=== PATIENT | female | born 1945 | race Caucasian/White ===

== ENCOUNTER 2017-09-20 12:50 | Inpatient (IN) | payer MEDICARE, OTHER ==
[~2017-09-20] VITALS: Ht 154.9 cm; Wt 48.1 kg
[~2017-09-20 12:50] MED LIST: AZITHROMYCIN 2250 MG PO; CLEOCIN HCL150 MG PO; CLIMARA 0.070.075 MG TD; EVOXAC30 MG PO; MEDROLDOSEPACK PO; METROGEL-VAGINA70 GM VG; SOMA250 MG PO; TIROSINT88 MCG PO
[2017-09-20 12:58] VITALS: BP 137/80
[2017-09-20] MEDS ORDERED: MOBIC15 MG PO (13:06)
[2017-09-20] MEDS ORDERED: SINGULAIR 10 MG10 M1 PO (13:07)
[2017-09-20] MEDS ORDERED: ZANTAC 150MG T150 MG PO (13:08)
[2017-09-20] MEDS ORDERED: PREDNISONE 10 M10 MG PO (13:11)
[2017-09-20 13:33] LABS: HEMATOCRIT 44.9 % (37.0-47.0); HEMOGLOBIN 14.7 gm/dL (12.0-15.0); MCH 28.9 pg (26.0-34.0); MCHC 32.8 g/dL (28.0-37.0); MCV 88.1 fL (80.0-100.0); NUCLEATED RBCS 0 /100WBC; PLATELET COUNT* 290 thou/uL (150-400); RBC 5.09 mil/uL (4.20-5.00); RDW-CV 17.7 % (10.5-14.5); WBC 15.5 thou/uL (4.0-11.0)
[2017-09-20 13:42] LABS: CALCIUM 8.6 mg/dL (8.5-10.1); CREATININE 1.2 mg/dL (0.6-1.3); POTASSIUM 4.5 mmol/L (3.5-5.1)
[2017-09-20 13:53] LABS: ALBUMIN 3.6 g/dL (3.4-5.0); TOTAL BILIRUBIN 0.8 mg/dL (<0.1-1.0); TOTAL PROTEIN 6.6 g/dL (6.4-8.2); TROPONIN-I LEVEL 0.25 ng/mL (<0.06)
[2017-09-20 13:54] LABS: ABSOLUTE BASOPHILS 0.2 thou/uL (0.0-0.2); ABSOLUTE EOSINOPHILS 0.2 thou/uL (0.0-0.7); ABSOLUTE LYMPHOCYTES 0.9 thou/uL (0.8-5.3); ABSOLUTE MONOCYTES 0.3 thou/uL (0.0-1.2); ATYPICAL LYMPHS 2 %; PLATELET ESTIMATE ADEQUATE
[2017-09-20 16:58] VITALS: BP 147/88
--- NOTE | 2017-09-20 17:29 | 2DMMODE ---
[place] [address] 2 D/M-MODE ECHOCARDIOGRAM Name: EDWIN BA Room: [address] IN [facility]#: [id number] Admission: 09/20/17 Attend Phys: Negrito Davila Discharge: Date of : 43 Date of Service: 09/20/17 1729 Report #: [id number] THIS REPORT FOR: //name// APPROVED REPORT Study performed: 09/20/2017 15:50:09 EXAM: Comprehensive 2D, Doppler, and color-flow Echocardiogram Patient Location: In-Patient Room #: ER Status: routine BSA: 1.45 HR: 73 bpm BP: 147/88 mmHg Rhythm: NSR Other Information Study Quality: Good Indications Dyspnea 2D Dimensions LVEF(%): 78.95 (>50%) IVSd: 8.22 (7-11mm) LVOT Diam: 18.36 (18-24mm) LVDd: 27.35 mm PWd: 8.04 (7-11mm) Ascending Ao: 30.91 (22-36mm) LVDs: 14.82 (25-40mm) Aortic Root: 27.15 mm Bruno's LVEF: 78.95 % Volumes Left Atrial Volume (Systole) LA ESV Index: 11.40 mL/m2 Aortic Valve AoV Peak Mike.: 1.09 m/s AO Peak Gr.: 4.71 mmHg LVOT Max P.65 mmHg AO Mean Gr.: 2.47 mmHg LVOT Mean P.65 mmHg LVOT Max V: 0.64 m/s AO V2 VTI: 20.47 cm LVOT Mean V: 0.36 m/s VAMSI (VTI): 1.60 cm2 LVOT V1 VTI: 12.35 cm Mitral Valve E/A Ratio: 0.71 [place] [address] 2 D/M-MODE ECHOCARDIOGRAM Name: EDWIN BA Room: [address] IN .R.#: [id number] Admission: 09/20/17 Attend Phys: Negrito Davila Discharge: Date of : 43 Date of Service: 09/20/17 1729 Report #: [id number] MV Decel. Time: 138.82 ms MV E Max Mike.: 0.57 m/s MV PHT: 40.26 ms MVA (PHT): 5.46 cm2 TDI E/Lateral E': 7.13 E/Medial E': 7.13 Medial E' Mike.: 0.08 m/s Lateral E' Mike.: 0.08 m/s Pulmonary Valve PV Peak Mike.: 0.84 m/s PV Peak Gr.: 2.80 mmHg Tricuspid Valve TR Peak Gr.: 83.98 mmHg RVSP: 88.00 mmHg Left Ventricle The left ventricle is normal size. There is normal LV segmental wall motion. Moderate concentric left ventricular hypertrophy. Left ventricular systolic function is normal. The left ventricular ejection fraction is within the normal range. LVEF is 60-65%. Grade I - abnormal relaxation pattern. Right Ventricle Right ventricle is dilated. The right ventricular systolic function is normal. Atria The left atrium size is normal. Right atrium is moderate to severely dilated. Aortic Valve Mild aortic valve sclerosis. Trace aortic regurgitation. Mild aortic stenosis. Mitral Valve The mitral valve is normal in structure. Trace mitral regurgitation. No evidence of mitral valve stenosis. Tricuspid Valve The tricuspid valve is normal in structure. There is severe pulmonary hypertension. The RVSP is ___88____ mmHg. Pulmonic Valve The pulmonary valve is normal in structure. Mild [place] [address] 2 D/M-MODE ECHOCARDIOGRAM Name: SHELLIHONORIOEDWIN C Room: [address] IN [facility]#: [id number] Admission: 09/20/17 Attend Phys: Negrito Davila Discharge: Date of : 43 Date of Service: 09/20/17 1729 Report #: [id number] Great Vessels The aortic root is normal in size. IVC is normal in size and collapses with >50% inspiration Pericardium There is no pericardial effusion. <Conclusion> LVEF is 60-65%. Moderate concentric left ventricular hypertrophy. There is normal LV segmental wall motion. Grade I - abnormal relaxation pattern. Right ventricle is dilated. The right ventricular systolic function is normal. Mild aortic stenosis. Trace aortic regurgitation. There is severe pulmonary hypertension. The RVSP is 88mmHg. <ELECTRONICALLY SIGNED> By: Torrey Reynoso MD, FACC 09/20/171728 28 28 Torrey Reynoso MD, FACC /INF
--- NOTE | 2017-09-20 17:30 | EKG ---
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1945 Requested By: Rosy Redmond Order Number: [id number] Dontae MD: Torrey Reynoso Measurements Intervals [place] Rate: 71 P: 57 IA: 137 QRS: -52 QRSD: 80 T: 8 QT: 383 QTc: 417 Interpretive Statements Sinus rhythm Left atrial enlargement Left anterior fascicular block Anterior infarct, age indeterminate No previous ECG available for comparison Electronically Signed On 09-20-2017 17:30:32 [employer] by Torrey Reynoso [email or web address] <ELECTRONICALLY SIGNED> By: Torrey Reynoso MD, [facility] 09/20/17 6160 1321 1321 Torrey Reynoso MD, [facility] /EPI
--- NOTE | 2017-09-20 17:37 | NUR ---
Pt to room from ER , appears alert o x 4, denies chest pain, sob, p[ain or discomfort, on o2 at 2l per nc
[2017-09-20 17:38] VITALS: BP 145/90
--- NOTE | 2017-09-20 18:58 | NUR ---
PT RESTING IN BED, WITHOUT C/O. SL
[2017-09-20 20:15] VITALS: BP 133/75
[2017-09-21 00:32] VITALS: BP 130/83
[2017-09-21 04:07] VITALS: BP 121/79
--- NOTE | 2017-09-21 04:57 | NUR ---
ASSUMED CARE AROUND 1930. PT A/OX4, PLEASANT, RESTED SOME TONIGHT. TELE MONITOR TRACING SR. ON 2L NC. SATS DOWN TO 86% ON ROOM AIR THIS SHIFT. IV SALINE LOCKED. UP AD GRACE, STEADY ON FEET. REPORTING LEG CRAMPS, RELIEVED WITH AMBULATION. PT REPORTED INTERMITTENT CHEST PRESSURE, DECLINED ANY MEDS. VSS, AFEBRILE. SEE CHARTING. NO CONCERS VOICED. CALL LIGHT IN REACH, WILL CONTINUE WITH PLAN OF CARE.
[2017-09-21 06:20] LABS: ABSOLUTE BASOPHILS 0.2 thou/uL (0.0-0.2); ABSOLUTE LYMPHOCYTES 2.5 thou/uL (0.8-5.3); ABSOLUTE MONOCYTES 1.6 thou/uL (0.0-1.2); ABSOLUTE NEUTROPHILS 10.3 thou/uL (1.6-8.1); BASOPHILS 1.2 %; EOSINOPHILS 0.2 %; HEMOGLOBIN 14.6 gm/dL (12.0-15.0); LYMPHOCYTES 17.2 %; MCH 28.7 pg (26.0-34.0); MCHC 32.5 g/dL (28.0-37.0); MCV 88.3 fL (80.0-100.0); MONOCYTES 11.2 %; MPV 8.6 fl. (7.2-11.1); NUCLEATED RBCS 0 /100WBC; PLATELET COUNT* 274 thou/uL (150-400); POLYS 70.2 %; RBC 5.09 mil/uL (4.20-5.00); RDW-CV 17.6 % (10.5-14.5); WBC 14.6 thou/uL (4.0-11.0)
[2017-09-21 06:44] LABS: ALBUMIN 3.5 g/dL (3.4-5.0); CALCIUM 8.9 mg/dL (8.5-10.1); CREATININE 1.2 mg/dL (0.6-1.3); POTASSIUM 4.4 mmol/L (3.5-5.1); TOTAL BILIRUBIN 1.1 mg/dL (<0.1-1.0); TOTAL PROTEIN 5.9 g/dL (6.4-8.2)
[2017-09-21 08:38] VITALS: BP 136/84
[2017-09-21 11:42] VITALS: BP 129/77
[2017-09-21 15:38] VITALS: BP 118/73
--- NOTE | 2017-09-21 19:53 | NUR ---
PT RESTING IN BED, O X 4, BRP, SEEN BY CARDIOLOGY, PULMONARY CONSULTED , R/O PULMONARY HTN. O2 AT 2L PER NC
[2017-09-21 20:00] VITALS: BP 120/76
--- NOTE | 2017-09-21 22:03 | NUR ---
ASSUMED PATIENT CARE AT 1900. BEDSIDE REPORT GIVEN. PATIENT ALERT AND ORIENTED. AT BEDSIDE. OXYGEN AT 2L. PATIENT REQUESTS SOMETHING TO SLEEP AND RESTART ZANTAC. AMBIEN 5MG PRN GIVEN. PATIENT EDUCATED ON S/E. MARIA TERESA ALARM IN PLACE DUE TO NEW MEDICATION AND INCREASED POTENTIAL FOR FALLS. INSTRUCTED ZANTAC NOT AVAILABLE BUT ORDER FOR PEPCID REC'D. PATIENT IN AGREEANCE WITH POC. FALL PRECAUTIONS IN PLACE. OK TO PROCEED.
[2017-09-22] VITALS (7 sets, daily range): BP systolic 114–134; BP diastolic 59–92
--- NOTE | 2017-09-22 04:49 | NUR ---
PATIENT STABLE THROUGH SHIFT. DENIES PAIN OR OTHER NEEDS. PRN SLEEP AID GIVEN. PATIENT UP TO BATHROOM ONCE DURING NIGHT. HOURLY ROUNDING IN PLACE. WILL CONTINUE TO MONITOR.
--- NOTE | 2017-09-22 20:00 | NUR ---
RECEIVED REPORT AND ASSUMED CARE OF PT, ASSESSMENT COMPLETED. PT ANXIOUS ABOUT BOWEL AND STRESS TEST TOMORROW, WILL GIVE IMMODIUM BUT PT REQUEST 1 CAP. GAIT STEADY ABOUT ROOM. TELEMETRY ON SHOWING SR. WILL CONT TO MONITOR AND ASSIST NEEDED.
--- NOTE | 2017-09-22 20:19 | NUR ---
I ASSUMED CARE OF THE PATIENT AT 0700. HOURLY ROUNDING WAS DONE AND PATIENT NEEDS WERE MET. PAIN WAS DENIED. BED IS IN THE LOW LOCKED POSITION AND CALL LIGHT IS IN REACH. PATIENT IS UP AD GRACE TO THE BATHROOM. SHE HAD A LARGE LOOSE STOOL TODAY AND NEW ORDERS WERE OBTAINED. SHE IS NPO AT MIDNIGHT FOR A STRESS TEST AND VQ SCAN ON SATURDAY. CT RESULTS WERE CALLED TO DR MINOR. WILL CONTINUE TO MONITOR.
[2017-09-23 04:06] VITALS: BP 106/70
--- NOTE | 2017-09-23 06:53 | NUR ---
SLEPT WELL TONIGHT. UP TO BR AND RETURNED BACK TO BED. NO FURTHER STOOLS TONIGHT. NPO [place]CE [place] FOR STRESS TEST TODAY. TELEMETRY CONT TO SHOW SR. NO COMPLAINTS VOICED. ADVANCING TOWARDS GOALS. HOURLY ROUNDING OBSERVED.
[2017-09-23 07:30] VITALS: BP 114/78
[2017-09-23 11:46] VITALS: BP 125/75
--- NOTE | 2017-09-23 12:00 | NUR ---
CM ASSESSMENT: Pt is A&O. Resides at home with her . Normally pretty independent with ADLs, continues to cook, clean and drive. Pt uses an inhaler at home, but no home o2. Pt to be tested for home o2 durin this hospital stay. Pt stated that she has begun using her walker more at home. No hx of HH or SNF. Supportive family that is involved in POC. Goal is to return home once medically stable for dc. Following.
--- NOTE | 2017-09-23 15:54 | NUR ---
ASSESSMENT COMPLETED REFER TO COMPUTER CHARTING. HEAD WORKER TRACKING SR. PATIENT RESTING IN BED REPORTING NO PAIN, NAUSEA OR SHORTNESS OF BREATH. BED IN LOW AND LOCKED POSITION. CALL LIGHT WITHIN REACH. IV SALINE LOCKED. PATIENT TO HAVE O2 SAT MONITOR THIS HS. DUE TO PATIENT HAVING VQ SCAN TODAY STRESS TEST WILL BE SATURDAY. WILL CONTINUE TO MONITOR THIS SHIFT.
[2017-09-23 16:00] VITALS: BP 110/78
[2017-09-23 16:09] LABS: HEMATOCRIT 50.6 % (37.0-47.0); HEMOGLOBIN 16.4 gm/dL (12.0-15.0); MCH 28.6 pg (26.0-34.0); MCHC 32.3 g/dL (28.0-37.0); MCV 88.4 fL (80.0-100.0); MPV 8.9 fl. (7.2-11.1); RBC 5.72 mil/uL (4.20-5.00); RDW-CV 18.1 % (10.5-14.5); WBC 17.3 thou/uL (4.0-11.0)
[2017-09-23 16:27] LABS: ALBUMIN 3.7 g/dL (3.4-5.0); CALCIUM 8.3 mg/dL (8.5-10.1); CREATININE 1.3 mg/dL (0.6-1.3); POTASSIUM 4.4 mmol/L (3.5-5.1); TOTAL PROTEIN 6.7 g/dL (6.4-8.2)
--- NOTE | 2017-09-24 03:17 | NUR ---
PT HAS DENIED PAIN, SOA, AND ANY OTHER DISCOMFORT. SHE IS UP AD GRACE IN HER ROOM, STEADY GAIT WITHOUT ASSISTANCE. OVERNIGHT O2 SAT MONITORING IN PLACE. PT IS NPO AFTER MIDNIGHT FOR STRESS TEST LATER TODAY. PRN AMBIEN GIVEN AT HS PER PT REQUEST. CALL LIGHT WITHIN REACH.
[2017-09-24 05:03] VITALS: BP 118/67
--- NOTE | 2017-09-24 08:08 | CON ---
[address] [address] CONSULTATION Name: EDWIN BA Room: [address] IN M.R.#: [id number] Admission: 09/20/17 Attend Phys: Negrito Boudreaux, Discharge: Date of : 43 Report #: [id number] THIS REPORT FOR: //name// CC: Negrito Mackey REASON FOR CONSULTATION: Pulmonary hypertension, shortness of breath. HISTORY OF PRESENT ILLNESS: The patient is a 71-year-old female patient who is not a smoker, but she told me she has been told she has COPD, emphysema, Sjogren's syndrome. She follows with Dr. Pang in the past and she is on inhalers at home. She had some increasing shortness of breath for the last few days. She received some steroids from Dr. Pang's office with some improvement in her symptoms; however, because the symptoms did not resolve, she presented to the ER. She also developed lower extremity edema for the last several days and had difficulty lying flat and she provided positive history of orthopnea with some feeling of chest discomfort. Of note, she is not on any oxygen at home. She is followed by Cardiology as an outpatient too. She had no fever, no chills, no sick contact, no symptoms to suggest upper respiratory tract infection. She had no hemoptysis and denied any symptoms. ALLERGIES: CONTRAST DYE. PAST MEDICAL HISTORY: She has history of congestive heart failure, Sjogren's syndrome and was told she has COPD/asthma and she had a leaky heart valve according to her. PAST SURGICAL HISTORY: Bilateral leg surgery, cholecystectomy, . FAMILY HISTORY: Reviewed with the patient, noncontributory. SOCIAL HISTORY: Does not drink alcohol. Does not abuse drugs, never smoked before. HOME MEDICATIONS: She is on levothyroxine, meloxicam, Singulair, ranitidine and recently she was on prednisone taper. REVIEW OF SYSTEMS: She denied fever, chills, blurring of vision, dizziness, but reported shortness of breath, dyspnea on exertion, orthopnea. She denied cough, diarrhea, change in bowel habits. She has some chest discomfort. She denied any easy bruisability or bleeding from any orifice. She denied depression or anxiety. The rest of the review of system was negative. PHYSICAL EXAMINATION: VITAL SIGNS: She is on 2 liters oxygen with saturation more than 90%, blood pressure 134/92, pulse rate 72, temperature 36.4, breathing 18 times a minute. GENERAL: Thin lady, awake, alert, oriented, speaks in full sentences, [place] [address] CONSULTATION Name: EDWIN BA Room: [address] IN M.R.#: [id number] Admission: 09/20/17 Attend Phys: Negrito Boudreaux, Discharge: Date of : 43 Report #: [id number]. HEENT: Head: Normocephalic, atraumatic. Eyes: Pupils equal, reactive to light. Extraocular muscle movements intact, not pale, no jaundice. External ear looks healthy and normal. Oral cavity: Mallampati of 2, moist mucous membrane. Nasal cavity patent. NECK: Supple. No palpable lymph node. No palpable thyroid. Trachea is central. CHEST: Diminished air movement bilaterally with prolonged expiratory phase. No definite wheezes. HEART: S1, S2, , faint systolic murmur. ABDOMEN: Benign, soft, lax, nontender. EXTREMITIES: Lower extremity, trace edema, equal bilaterally. No calf tenderness. NEUROLOGIC: Moving 4 extremities spontaneously. No focal weakness. Cranial nerves grossly normal. PSYCHIATRIC: Mood and affect appropriate. Good insight and judgment. SKIN: Normal for age and race. No rash. LYMPHATICS: No palpable lymph nodes. Her venous Doppler ultrasound did not show evidence of DVT. Her chest x-ray on 20 of September did not show acute process. She had an echocardiogram during this hospitalization that demonstrated ejection fraction of 60% with grade 1 diastolic dysfunction and pulmonary hypertension of 88 mmHg. Her white blood count is 15.5, hemoglobin 14.7 and platelets of 290. Her D-dimer was noted to be elevated. IMPRESSION: 1. Fluid overload. 2. Picture of congestive heart failure, diastolic dysfunction. 3. Severe pulmonary hypertension. 4. History of chronic obstructive pulmonary disease/asthma, nonsmoker. 5. History of Sjogren's syndrome. The patient with pulmonary hypertension. She has multiple factors to have the pulmonary hypertension, could be related to Sjogren's syndrome with some element of interstitial lung disease. Also, pulmonary embolus is a concern. I agree with V/Q scan. She is being followed by Cardiology. The diastolic dysfunction also could be a contributing factor for pulmonary hypertension. She may benefit from sleep study as an outpatient. She already sees Dr. Pang. I have no access to the record, but outpatient PFT would be helpful. I agree with oxygen supplement at this point. Close discharge needs to be evaluated for home oxygen. If she comes off oxygen during the daytime, we can do overnight oximetry. I am going to do high resolution CT scan for further evaluation for any interstitial lung disease. We will do an LION profile. As mentioned above, she will benefit from oxygen at home if she qualifies on outpatient sleep study. [facility] [address] [place] [address] CONSULTATION Name: EDWIN BA Room: [address] IN .R.#: [id number] Admission: 09/20/17 Attend Phys: Negrito Boudreaux, Discharge: Date of : 43 Report #: [id number] Thank you for the consult. <ELECTRONICALLY SIGNED> By: Hernan Pang MD 09/24/17 0808 0950 [id number] Silverman MD /nt
[2017-09-24] MEDS ORDERED: MAXZIDE-25 MG1 EACH PO (11:49)
[2017-09-24 12:40] VITALS: BP 135/90
--- NOTE | 2017-09-24 15:19 | CON ---
[address] [address] CONSULTATION Name: EDWIN BA Room: [address] IN .R.#: [id number] Admission: 09/20/17 Attend Phys: Negrito Boudreaux, Discharge: Date of : 43 Report #: [id number] THIS REPORT FOR: //name// CC: Negrito Espinoza Deshaunwicho DATE OF SERVICE: 09/21/2017 CHIEF COMPLAINT: Shortness of breath, chest pain. HISTORY OF PRESENT ILLNESS: The patient is a 71-year-old female who presented with significant shortness of breath with any activity. She denies palpitations or heart racing, but she does also complain of a centrally located chest pressure, lasts 3-5 minutes long. Her presenting ECG did not show any acute ST segment changes. Cardiac troponin level is normal. She had an echocardiogram which demonstrated severe greater than 75 mmHg pulmonary artery pressures along with dilated right-sided chambers. She has a known history of obstructive lung disease followed by Dr. Pang. This morning, she is chest pain free. She denies syncope or presyncope. Denies fevers or chills, denies leg swelling, orthopnea or PND. PAST MEDICAL HISTORY: COPD, emphysema, history of mild diastolic heart failure. She was followed by Dr. Maldonado in our office, hypothyroidism, GERD. PAST SURGICAL HISTORY: . HOME MEDICATIONS: Ranitidine, probiotic, omega 3, other supplements, Synthroid 88 mcg daily, meloxicam, Singulair. FAMILY HISTORY: Positive for heart disease in both parents. SOCIAL HISTORY: She is a nonsmoker, never smoker. REVIEW OF SYSTEMS: CARDIOVASCULAR: Positive chest pain, positive dyspnea, positive orthopnea. No palpitations. NEUROLOGIC: No syncope or presyncope. CENTRAL NERVOUS SYSTEM: No seizures or paralysis. ALLERGIES: Positive seasonal allergies. Positive dye allergies. PSYCHIATRIC: No depression. Positive anxiety. MUSCULOSKELETAL: [place] [address] CONSULTATION Name: EDWIN BA Yamini Room: [address]#: [id number] Admission: 09/20/17 Attend Phys: Negrito Boudreaux, Discharge: Date of : 43 Report #: [id number] SKIN: Positive rashes. EYES: Does use glasses. EARS, NOSE, THROAT AND MOUTH: Positive decreased hearing. GASTROINTESTINAL: No nausea or vomiting. ENDOCRINE: Positive thyroid disease. GENERAL: Positive fevers. PHYSICAL EXAMINATION: VITAL SIGNS: Blood pressure 136/84, heart rate 16, pulse 66, temperature is 36.2. GENERAL: This is a thin, elderly female. She is in no apparent distress. HEENT: Eyes are intact. No facial asymmetry. NECK: Supple, no jugular venous distention. HEART: Regular, I cannot hear a murmur. LUNGS: Clear to auscultation. She has positive S4. ABDOMEN: Nontender. EXTREMITIES: No peripheral edema. LABORATORY DATA: Electrocardiogram shows pulmonary disease pattern, normal ST segments. Troponin I is 0.32, 0.31, 0.33. Sodium is 142, potassium 4.4, chloride is 105, CO2 is 27, BUN is 25, creatinine is 1.2. Chest x-ray, no acute process. Venous Dopplers negative. IMPRESSION: 1. Dyspnea. I suspect this is a predominance related to her severe pulmonary hypertension noted on transthoracic echocardiogram testing. My understanding is our catering sales manager is going to be consulted. 2. Abnormal troponin. This is probably secondary to right heart strain and right heart failure as her right ventricle is dilated, although she does have some angina risk factors, so she should have a Lexiscan stress test. 3. Emphysema. As noted above, her catering sales manager has been consulted and she probably needs oxygen at bare minimum and also evaluation for possible pulmonary hypertension targeted therapy as directed by her catering sales manager. <ELECTRONICALLY SIGNED> By: Torrey Reynoso MD, FACC 09/24/17 1519 1059 [id number] Reynoso MD, FACC /nt
[2017-09-24 16:00] VITALS: BP 129/73
--- NOTE | 2017-09-24 16:09 | NUR ---
Waiting for stress test to be read, Pt ready to dc to home today. Pt will need ex ox completed. Updated nurse. Left info to fax to [facility]ana on chart (H&P, o2 order, facesheet), nurse will need to print off the RT sat from the ex ox and include with fax. Info to be faxed to [phone]
--- NOTE | 2017-09-24 16:24 | CARDNUC ---
[place] [address] CARDIAC NUCLEAR IMAGING REPORT Name: EDWIN BA Room: [address] IN [facility]#: [id number] Admission: 09/20/17 Attend Phys: Negrito Davila Discharge: Date of : 43 Date of Service: 09/24/17 1623 Report #: [id number] THIS REPORT FOR: //name// APPROVED REPORT Exam: Nuclear Stress Test Indication: Chest pain, Dyspnea Patient Location: In-Patient Room #: [facility] Stress Tech: Sera Rosas Stress Nurse: Matilda Curiel RN NM Tech:CIARA Quispe Ht: 5 ft 1 in Wt: 108 lbs BSA: 1.45 m2 BMI: 20.40 Medical History Medical History: CHF, Valvular heart disease Medications: No cardiac medications Allergies: contrast dye Cardiac Risk Factors: Age Exercise History: Sedentary Stress Test Details Stress Test: Pharmacologic stress testing performed using 0.4 mg of regadenoson per 5 mL given IV over 10 seconds. Reason for pharmacologic stress test: physical limitation. HR Resting HR: 61 bpm Max Heart Rate (APMHR): 148 bpm Max HR Achieved: 103 bpm Target HR (85% APMHR): 125 bpm % of APMHR: 69 Recovery HR: 97 bpm HR response to stress: Normal HR response to stress BP Resting BP: 135/83 mmHg Max BP: 125/71 mmHg BP response to stress: Normal blood pressure response to stress. ECG Resting ECG: Sinus Rhythm Stress ECG: Sinus Rhythm ST Change: [place] [address] CARDIAC NUCLEAR IMAGING REPORT Name: EDWIN BA Room: [address]#: [id number] Admission: 09/20/17 Attend Phys: Negrito Davila Discharge: Date of : 43 Date of Service: 09/24/17 1623 Report #: [id number] Arrhythmia: None Recovery ECG: Sinus Rhythm Clinical Reason for Termination: Completed protocol Stress Symptoms: None Exercise duration: 0 min sec Exercise capacity: 1.0 METs Stress ECG Conclusion negative ecg NM EXAM: Myocardial Perfusion REST/STRESS Imaging Protocol: Rest Tc-99m/Stress Tc-99m 1 day Resting Data Rest SPECT myocardial perfusion imaging was performed in supine position 30 minutes following the intravenous injection of 9.5 mCi of Tc-99m Sestamibi. Time of rest injection: 734 Time of rest imagin The images were gated to evaluate regional wall motion and calculate left ventricular ejection fraction. Administration Route: IV Pharmacologic Stress Pharmacologic stress test was performed by injecting Regadenoson 0.4 mg IV push followed by the intravenous injection of 26.1 mCi of Tc-99m Sestamibi. Time of stress injection: 0930 Time of stress imagin Administration Route: IV Gated Stress SPECT was performed 40 minutes after stress injection. The images were gated to evaluate regional wall motion and calculate left ventricular ejection fraction. Study Quality Study: Good Artifact: Mild Breast artifact Lung Uptake: Normal Study Data At rest, the left ventricular ejection fraction was 84%.. Post stress, the left ventricular ejection was 85%.. SSS: [address] [place] [address] CARDIAC NUCLEAR IMAGING REPORT Name: EDWIN BA Room: [address] IN [facility]#: [id number] Admission: 09/20/17 Attend Phys: Negrito Davila Discharge: Date of : 43 Date of Service: 09/24/17 1623 Report #: [id number] SRS: 2 SDS: 1 Perfusion Review of rest data reveals normal perfusion, without perfusion defects.Imaging obtained following vasodilator stress demonstrate a similar, uniform uptake of tracer without defects. Prone imaging was normal. LVEDV is normal.No segental wall motion abnormality seen. Images were reviewed using [email or web address].in. Wall Motion normal Nuclear Conclusion ECG Findings: negative for ischemia Clinical Findings: negative for ischemia Nuclear Findings: negative for ischemia Exercise Capacity: not assessed Left Ventricular Function: normal Risk Study: low Negative perfusion nuclear stress test. <Conclusion> negative ecg <ELECTRONICALLY SIGNED> By: Torrey Reynoso MD, FACC 09/24/17 1453 162 [id number] Torrey Reynoso MD, [facility] /INF
--- NOTE | 2017-09-24 19:00 | NUR ---
ORDER RECEIVED TO DISCHARGE PATINET HOME TO SELF CARE. MED REC, MEDICATION EDUCATION, STROKE EDUCATION AND NEED FOR FOLLOW UP APPOINTMENT WITH PULM, PRIMARY COVERED, AND CARDIOLOGY WITHIN 1 WEEK COVERED AND STATED UNDERSTOOD BY P[ATIENT. ORDER FOR FOLLOW UP APPOINTMENT FOR POST HF CARDILOGY FOLLOW UP FAXED TO CARDIOLOGY OFFICE. WILL FOLLOW UP WITH OFFICE IN AM. PATINET TAKEN VIA WHEELCHAIR TO AWAITING CAR WITH SPOUSE PRESENT. PATIENT IN NO APPARENT DISTRESS AT TIME OF DISCHARGE. DC TIME OF 17:45. HOURLY ROUNDING COMPLETD FOR PATIENT SAFETY.
== END 2017-09-24 18:00 | disposition home or self-care (01) | DRG 292 ==
LOC: M.ERS 12:50 → M.TBA-ER 15:32 → M.2W 15:32
PROVIDERS: Internal Medicine; Physician Assistant; ADMIT Family Medicine
PROC: B24BZZ4 Ultrasonography of Heart with Aorta, Transesophageal (ICD-10-PCS; principal; 2017-09-20)
DX: I50.31 Acute diastolic (congestive) heart failure (principal); R65.10 Systemic inflammatory response syndrome (SIRS) of non-infectious origin without acute organ dysfunction; M35.00 Sjogren syndrome, unspecified; J44.9 Chronic obstructive pulmonary disease, unspecified; H91.90 Unspecified hearing loss, unspecified ear; E03.9 Hypothyroidism, unspecified; J43.9 Emphysema, unspecified; K21.9 Gastro-esophageal reflux disease without esophagitis; I27.20 Pulmonary hypertension, unspecified; Z98.891 History of uterine scar from previous surgery; Z90.49 Acquired absence of other specified parts of digestive tract; Z79.52 Long term (current) use of systemic steroids; Z79.899 Other long term (current) drug therapy; Z91.041 Radiographic dye allergy status; Z82.49 Family history of ischemic heart disease and other diseases of the circulatory system

== ENCOUNTER → 2018-11-28 | Outpatient (CLI) | payer MEDICARE, OTHER ==
[~2018-11-28] MED LIST changes: +MAXZIDE-25 MG1 EACH PO; +MOBIC15 MG PO; +PREDNISONE 10 M10 MG PO; +SINGULAIR 10 MG10 M1 PO; +ZANTAC 150MG T150 MG PO
== END ==
LOC: M.LAB 17:55
DX: R19.7 Diarrhea, unspecified (principal)